=== PATIENT | male | born 1960 | race Caucasian/White ===

== ENCOUNTER 2017-04-30 14:14 | Outpatient (CLI) | payer OTHER ==
--- NOTE | 2017-05-01 11:33 | OP Clinic Progress Note ---
REFERRING PHYSICIAN: Dr. Sheila Robles REASON FOR VISIT: This is a 57-year-old man who has had persistent right-sided ear pressure and discomfort. He really has not had many ear problems prior to a month to 6 weeks ago. He had been lying down with his leg propped up associated with a left ankle fracture or sprain. He was yawning and his ear simply popped and he had reduced hearing. Both ear canals are fairly normal. The right eardrum is retracted. He still has about half the middle ear filled with fluid and the other half has air within it. He has taken both Augmentin and Levaquin without any significant improvement. Clinically, he has Eustachian tube dysfunction and some degree of a tensor syndrome as he was yawning quite deeply and then having his ear pop and stay with muffled hearing. PLAN: I would still give the ear a little longer on antibiotics. The bigger guns of Augmentin and Levaquin have not worked, so I have elected to stay a little simpler and simply use amoxicillin 500 mg 3 times a day for 10 days. I will see him back in about 2 weeks. We discussed a myringotomy or a possible myringotomy with placement of a tube in an outpatient setting in the clinic as an option. Again, I would give the medicine a little while longer to see if there is some improvement. Diagrams and models have been used. The patient seems to have good understanding and will come back in about 2 weeks. cc: Dr. Sheila LIGHT
== END 2017-04-30 14:15 ==
LOC: ENT 14:14
PROVIDERS: ATTEND Otolaryngology
DX: H91.91 Unspecified hearing loss, right ear (principal)
CPT/HCPCS: 99203

== ENCOUNTER 2017-08-05 07:00 | Outpatient (CLI) | payer OTHER ==
[2017-08-05 07:52] LABS: eGFR (African) > 60; eGFR (Non-African) > 60
== END 2017-08-05 07:02 ==
LOC: LAB 07:00
PROVIDERS: ATTEND Family Medicine
DX: Z00.00 Encounter for general adult medical examination without abnormal findings (principal); Z12.5 Encounter for screening for malignant neoplasm of prostate
CPT/HCPCS: 36415; 80053; 80061; 83036; G0103

== ENCOUNTER 2019-09-22 07:59 | Outpatient (CLI) | payer OTHER ==
[2019-09-22 09:31] LABS: A1C 5.8 % (<5.7); eGFR (Non-African) > 60
[2019-09-22 09:32] LABS: HDL 40 mg/dL (>40)
== END 2019-09-22 08:04 ==
LOC: LAB 07:59
PROVIDERS: ATTEND Family Medicine
DX: Z13.220 Encounter for screening for lipoid disorders (principal); Z13.1 Encounter for screening for diabetes mellitus
CPT/HCPCS: 36415; 80053; 80061; 83036